=== PATIENT | male | born 1970 | race Caucasian/White ===

== ENCOUNTER → 2020-11-03 | Outpatient (CLI) | payer OTHER ==
--- NOTE | 2020-11-03 16:05 | RAD ---
Right knee 3 views INDICATION: Right knee pain FINDINGS: Normal alignment and mineralization with no acute fracture or aggressive appearing osseous lesions. T here is a small right knee joint effusion. There is mild lateral joint space narrowing on the AP view . IMPRESSION: Findings of lateral joint space degenerative change and a joint effusion. No fracture or malalignment . Electronically signed by: Krissy Patterson MD (11/03/2020 4:02 PM) [id number]
== END ==
LOC: DXRAD 09:27
PROVIDERS: ATTEND Orthopaedic Surgery Sports Medicine
DX: M17.11 Unilateral primary osteoarthritis, right knee (principal); M25.461 Effusion, right knee
CPT/HCPCS: 73562